=== PATIENT | male | born 1980 | race Caucasian/White ===

== ENCOUNTER 2017-10-08 14:42 | Day surgery (SDC) | payer MEDICAID ==
[~2017-10-08] VITALS: Ht 177.8 cm; Wt 113.6 kg
[2017-10-08] MEDS ORDERED: NO HOME MEDS (15:18)
[2017-10-08 15:19] VITALS: BP 131/85
[2017-10-08] MEDS ORDERED: LIDOcaine Viscous 15ml cup ONE (15:25)
[2017-10-08] MEDS ORDERED: MIDAZolam 5mg/5ml vial ONE (15:25)
[2017-10-08] MEDS ORDERED: fentaNYL/PF 50MCG/1 ML 2ML syringe ONE (15:25)
[2017-10-08 15:49] VITALS: BP 119/69
[2017-10-08 15:59] VITALS: BP 111/68
[2017-10-08 16:09] VITALS: BP 118/78
== END 2017-10-08 16:22 | disposition home or self-care (01) ==
LOC: GI LAB 14:42
PROVIDERS: ATTEND Internal Medicine Gastroenterology
DX: I85.00 Esophageal varices without bleeding (principal); K76.6 Portal hypertension; K31.89 Other diseases of stomach and duodenum; E66.9 Obesity, unspecified; F17.210 Nicotine dependence, cigarettes, uncomplicated; F10.21 Alcohol dependence, in remission; F32.9 Major depressive disorder, single episode, unspecified; F12.90 Cannabis use, unspecified, uncomplicated; Z68.35 Body mass index [BMI] 35.0-35.9, adult
CPT/HCPCS: 43235; 99152; J2250; J3010; J7030; A4620; G0500

== ENCOUNTER 2018-02-16 22:09 | Emergency (ER) | payer MEDICAID ==
[~2018-02-16] VITALS: Ht 177.8 cm; Wt 111.4 kg
[~2018-02-16 22:09] MED LIST: NO HOME MEDS
[2018-02-16] MEDS: olanzapine 10mg tablet PO SCH (23:33)
[2018-02-16] MEDS ORDERED: thiamine 100mg tablet PO ONE (23:55)
[2018-02-16] MEDS ORDERED: folic acid 1mg tablet PO ONE (23:55)
[2018-02-16] MEDS ORDERED: chlordiazePOXIDE 25mg capsule PO ONE (23:55)
[2018-02-17 00:40] LABS: URINE AMPHETAMINE SCREEN NEGATIVE (Neg); URINE BARBITUATE SCREEN NEGATIVE (Neg); URINE BENZODIAZEPINES SCREEN NEGATIVE (Neg); URINE CANNABINOID SCREEN NEGATIVE (Neg); URINE COCAINE SCREEN NEGATIVE (Neg); URINE METHADONE SCREEN NEGATIVE (Neg); URINE OPIATE SCREEN NEGATIVE (Neg); URINE PHENCYCLIDINE SCREEN NEGATIVE (Neg)
[2018-02-17 00:41] LABS: ALANINE AMINOTRANSFERASE 93 U/L (12-78); ALBUMIN 4.2 G/DL (3.4-5.0); ALBUMIN/GLOBULIN RATIO 0.9 (1.1-1.5); ALKALINE PHOSPHATASE 109 IU/L (46-116); ANION GAP 15 (8-16); ASPARTATE AMINO TRANSFERASE 104 U/L (10-37); BILIRUBIN,TOTAL 1.4 MG/DL (0.1-1.0); BLOOD UREA NITROGEN 9 MG/DL (7-18); BUN/CREATININE RATIO 12.5 (5.4-32.0); CALCIUM 9.3 MG/DL (8.5-10.1); CHLORIDE 95 MMOL/L (99-107); CREATININE 0.72 MG/DL (0.60-1.10); GLUCOSE 127 MG/DL (70-104); POTASSIUM 3.3 MMOL/L (3.5-5.1); SODIUM 134 MMOL/L (135-145); TOTAL CARBON DIOXIDE 24.4 MMOL/L (24-32); eGFR > 90 ML/MIN
[2018-02-17] MEDS ORDERED: potassium Cl 20 mEq SR tablet PO ONE (00:50)
[2018-02-17] MEDS ORDERED: magnesium oxide 400mg tablet PO ONE (00:50)
[2018-02-17 00:52] LABS: ETHANOL < 0.010 GM/DL (0.0-0.010)
[2018-02-17 01:29] LABS: CLARITY,URINE CLEAR (Clear); COLOR,URINE YELLOW (Yellow); GLUCOSE, URINE 100 mg/dl (Neg); KETONES,URINE NEGATIVE (Neg); LEUKOCYTE ESTERASE ,URINE NEGATIVE (Neg); NITRITES, URINE NEGATIVE (Neg); OCCULT BLOOD,URINE TRACE-LYSED (Neg); PROTEIN,URINE 100 mg/dl (Neg); UA COLLECTION TYPE VOIDED
[2018-02-17 01:35] LABS: BACTERIA,URINE NONE SEEN /HPF (Neg); RBC,URINE 0-2 /HPF (0-2); SQUAMOUS EPITHELIAL CELL,UR FEW /LPF (FEW); WBC,URINE 0-4 /HPF (0-4)
[2018-02-17 01:36] LABS: MUCUS STRANDS NONE SEEN /LPF (Neg)
[2018-02-17 01:59] LABS: BASOPHILS % (AUTO) 0.4 % (0-1); EOSINOPHILS # (AUTO) 0.1 X10'3 (0-0.9); EOSINOPHILS % (AUTO) 1.6 % (0-6); HEMATOCRIT 50.4 % (42.0-52.0); HEMOGLOBIN 17.8 g/dl (14.0-17.9); LYMPHOCYTES % (AUTO) 11.7 % (21-51); MEAN CORPUSCULAR HEMOGLOBIN 31.9 PG (27.0-31.0); MEAN CORPUSCULAR HGB CONC 35.3 % (33.0-36.5); MEAN CORPUSCULAR VOLUME 90.4 FL (78-98); MEAN PLATELET VOLUME 9.6 FL (7.4-10.4); MONOCYTES # (AUTO) 0.6 X10'3 (0-0.9); MONOCYTES % (AUTO) 6.8 % (2-12); NEUTROPHILS # (AUTO) 7.1 X10'3 (1.8-7.7); NEUTROPHILS % (AUTO) 79.5 % (42-75); PLATELET COUNT 118 X10'3 (140-440); RED BLOOD COUNT 5.58 X10'6 (4.70-6.10); RED CELL DISTRIBUTION WIDTH 13.7 % (11.5-14.5); WHITE BLOOD COUNT 8.9 X10'3 (4.5-11.0)
[2018-02-17 02:36] LABS: PLATELET ESTIMATE DECREASED
[2018-02-17 02:38] LABS: SPHEROCYTES 3+
[2018-02-17 03:07] LABS: ACETAMINOPHEN < 2.0 UG/ML (10-30)
[2018-02-17] MEDS: olanzapine 10mg tablet PO SCH (23:25)
[2018-02-18 18:46] VITALS: BP 126/80
== END 2018-02-18 20:37 ==
LOC: ER 22:10
DX: R45.851 Suicidal ideations (principal)
CPT/HCPCS: 36415; 80053; 80305; 80320; 80329; 81001; 84443; 85025; 99285; J3490

== ENCOUNTER 2018-11-09 14:51 | Emergency (ER) | payer MEDICAID ==
[~2018-11-09] VITALS: Ht 177.8 cm; Wt 113.6 kg
[2018-11-09] MEDS ORDERED: LORazepam 1 MG tablet PO ONE (15:25)
[2018-11-09] MEDS ORDERED: NO HOME MEDS (15:35)
[2018-11-09 15:46] LABS: CLARITY,URINE CLEAR (Clear); COLOR,URINE AMBER (Yellow); GLUCOSE, URINE NEGATIVE (Neg); KETONES,URINE >=80 mg/dl (Neg); LEUKOCYTE ESTERASE ,URINE NEGATIVE (Neg); NITRITES, URINE NEGATIVE (Neg); OCCULT BLOOD,URINE MODERATE (Neg); PROTEIN,URINE >=300 mg/dl (Neg)
[2018-11-09 15:52] LABS: UA COLLECTION TYPE CLN CATCH MIDSTREAM
[2018-11-09 15:54] LABS: BACTERIA,URINE NONE SEEN /HPF (Neg); SQUAMOUS EPITHELIAL CELL,UR FEW /LPF (FEW); WBC,URINE 0-4 /HPF (0-4)
[2018-11-09 15:56] LABS: ALANINE AMINOTRANSFERASE 282 U/L (12-78); ALBUMIN 4.1 G/DL (3.4-5.0); ALBUMIN/GLOBULIN RATIO 0.8 (1.1-1.5); ALKALINE PHOSPHATASE 96 IU/L (46-116); ANION GAP 18 (8-16); ASPARTATE AMINO TRANSFERASE 368 U/L (10-37); BILIRUBIN,TOTAL 1.5 MG/DL (0.1-1.0); BLOOD UREA NITROGEN 9 MG/DL (7-18); BUN/CREATININE RATIO 11.1 (5.4-32.0); CALCIUM 8.7 MG/DL (8.5-10.1); CHLORIDE 95 MMOL/L (99-107); CREATININE 0.81 MG/DL (0.60-1.10); GLUCOSE 86 MG/DL (70-104); POTASSIUM 3.6 MMOL/L (3.5-5.1); SODIUM 137 MMOL/L (135-145); TOTAL CARBON DIOXIDE 23.7 MMOL/L (24-32); TOTAL PROTEIN 9.1 G/DL (6.4-8.2); eGFR > 90 ML/MIN
[2018-11-09 16:00] LABS: BASOPHILS # (AUTO) 0.1 X10'3 (0-0.2); BASOPHILS % (AUTO) 0.9 % (0-1); EOSINOPHILS % (AUTO) 0.3 % (0-6); HEMATOCRIT 52.7 % (42.0-52.0); LYMPHOCYTES # (AUTO) 2.2 X10'3 (1.1-4.8); LYMPHOCYTES % (AUTO) 39.3 % (21-51); MEAN CORPUSCULAR HEMOGLOBIN 30.2 PG (27.0-31.0); MEAN CORPUSCULAR HGB CONC 35.2 g/dL (33.0-36.5); MEAN CORPUSCULAR VOLUME 85.7 FL (78-98); MEAN PLATELET VOLUME 8.2 FL (7.4-10.4); MONOCYTES # (AUTO) 0.4 X10'3 (0-0.9); MONOCYTES % (AUTO) 6.5 % (2-12); NEUTROPHILS # (AUTO) 2.9 X10'3 (1.8-7.7); PLATELET COUNT 166 X10'3 (140-440); RED BLOOD COUNT 6.15 X10'6 (4.70-6.10); RED CELL DISTRIBUTION WIDTH 13.6 % (11.5-14.5); WHITE BLOOD COUNT 5.5 X10'3 (4.5-11.0)
[2018-11-09 16:01] LABS: URINE AMPHETAMINE SCREEN NEGATIVE (Neg); URINE BARBITUATE SCREEN NEGATIVE (Neg); URINE BENZODIAZEPINES SCREEN NEGATIVE (Neg); URINE CANNABINOID SCREEN NEGATIVE (Neg); URINE COCAINE SCREEN NEGATIVE (Neg); URINE METHADONE SCREEN NEGATIVE (Neg); URINE OPIATE SCREEN NEGATIVE (Neg); URINE PHENCYCLIDINE SCREEN NEGATIVE (Neg)
[2018-11-09 16:05] LABS: HEMOGLOBIN 18.5 g/dl (14.0-17.9)
[2018-11-09] MEDS ORDERED: normal saline 1000ml 1,000 ML IV ONE (16:10)
--- NOTE | 2018-11-09 19:25 | NUR ---
Patient transferred from the main. Patient has elevated ETOH level. Patient c/o hearing command hallucinations telling him to drink himself to . Patient states he is having audio and visual hallucinations. Patient would not describe the visual hallucinations. Patient states he is very depressed and doesn't know if he is suicidal. Continue to monitor.
--- NOTE | 2018-11-09 20:55 | NUR ---
Patient continues to sleep on right side. Continue to monitor.
--- NOTE | 2018-11-09 22:06 | NUR ---
Patient sleping on right side. No distress observed. Continue to monitor.
--- NOTE | 2018-11-09 22:17 | NUR ---
breaking primary RN, pt is laying on his right side, eyes closed, snoring, no s/s of agitation observed
--- NOTE | 2018-11-10 00:15 | NUR ---
Patient sleeping on left side. No distress observed. Continue to monitor.
--- NOTE | 2018-11-10 02:54 | NUR ---
Patient just rolled over on his back, still sleeping. No distress observed. Continue to monitor.
--- NOTE | 2018-11-10 05:08 | NUR ---
Patient sleeping on right side. Patient awoken a few minutes ago for vital signs. No distress observed. Continue to monitor.
--- NOTE | 2018-11-10 07:30 | NUR ---
Pt remains calm and cooperative and denies needs at present time.
--- NOTE | 2018-11-10 09:30 | NUR ---
Called [facility] office and spoke with Ester, report that management intern currently at [facility]. If management intern unable to come here this AM [facility] management intern Dillon is to be arriving around 1230 this afternoon.
--- NOTE | 2018-11-10 14:12 | NUR ---
NO CHANGE. RESTING IN POC WITHOUT NEED AT THIS TIME. ATE ALL OF LUNCH.
--- NOTE | 2018-11-10 14:30 | NUR ---
PT REMAINS CALM & COOPERATIVE. PT NOTED TO BE GETTING RESTLESS AT TIMES (FIDGETING WITH BLANKETS, RESTLESS IN BED GETTING UP AND DOWN) BUT THEN WILL LAY DOWN AND REST. DISCUSSED PT ACTIVITY WITH DR. RAE AND MAY GIVE PT ATIVAN 2MG PO X 1 PRN ANXIETY/AGITATION.
--- NOTE | 2018-11-10 18:42 | NUR ---
Patient called brother who will transport patient at [place].
--- NOTE | 2018-11-10 20:10 | NUR ---
Denies suicidal thoughts, auditory and visual hallucinations. Awaiting brother with the assistance of [facility] to transport pt back to home with family in [place]. Denies pain. Laying comfortably in bed.
[2018-11-10 21:07] VITALS: BP 161/101
--- NOTE | 2018-11-10 21:15 | NUR ---
Patients brother here to hand picker patient. DC instructions given. Patient signed DC forms. Belongings sent with patient.
== END 2018-11-10 21:15 | disposition home or self-care (01) ==
LOC: ER 14:53
DX: R45.851 Suicidal ideations (principal); F10.239 Alcohol dependence with withdrawal, unspecified; Y90.0 Blood alcohol level of less than 20 mg/100 ml
CPT/HCPCS: 36415; 80053; 80305; 80320; 81001; 85025; 93005; 99284; J7030

== ENCOUNTER 2018-11-13 02:36 | Emergency (ER) | payer MEDICAID ==
[~2018-11-13] VITALS: Ht 177.8 cm; Wt 110.0 kg
[2018-11-13 03:29] LABS: BASOPHILS % (AUTO) 0.8 % (0-1); EOSINOPHILS % (AUTO) 0.8 % (0-6); HEMOGLOBIN 16.2 g/dl (14.0-17.9); LYMPHOCYTES % (AUTO) 22.3 % (21-51); MEAN CORPUSCULAR HGB CONC 35.9 g/dL (33.0-36.5); MEAN CORPUSCULAR VOLUME 86.5 FL (78-98); MEAN PLATELET VOLUME 8.7 FL (7.4-10.4); MONOCYTES # (AUTO) 0.5 X10'3 (0-0.9); MONOCYTES % (AUTO) 10.1 % (2-12); PLATELET COUNT 88 X10'3 (140-440); RED BLOOD COUNT 5.21 X10'6 (4.70-6.10); RED CELL DISTRIBUTION WIDTH 13.5 % (11.5-14.5); WHITE BLOOD COUNT 4.6 X10'3 (4.5-11.0)
[2018-11-13 03:34] LABS: CLARITY,URINE CLEAR (Clear); COLOR,URINE YELLOW (Yellow); GLUCOSE, URINE NEGATIVE (Neg); KETONES,URINE NEGATIVE (Neg); LEUKOCYTE ESTERASE ,URINE NEGATIVE (Neg); NITRITES, URINE NEGATIVE (Neg); OCCULT BLOOD,URINE NEGATIVE (Neg); PH,URINE 7.5 (4.8-8.0); PROTEIN,URINE NEGATIVE (Neg)
[2018-11-13 03:39] LABS: ALANINE AMINOTRANSFERASE 149 U/L (12-78); ALBUMIN 3.7 G/DL (3.4-5.0); ALBUMIN/GLOBULIN RATIO 0.9 (1.1-1.5); ALKALINE PHOSPHATASE 104 IU/L (46-116); ANION GAP 11 (8-16); ASPARTATE AMINO TRANSFERASE 140 U/L (10-37); BILIRUBIN,TOTAL 1.4 MG/DL (0.1-1.0); BLOOD UREA NITROGEN 7 MG/DL (7-18); BUN/CREATININE RATIO 10.6 (5.4-32.0); CALCIUM 9.2 MG/DL (8.5-10.1); CHLORIDE 96 MMOL/L (99-107); CREATININE 0.66 MG/DL (0.60-1.10); GLUCOSE 156 MG/DL (70-104); POTASSIUM 3.1 MMOL/L (3.5-5.1); SODIUM 134 MMOL/L (135-145); TOTAL CARBON DIOXIDE 26.8 MMOL/L (24-32); eGFR > 90 ML/MIN
[2018-11-13 03:48] LABS: ETHANOL < 0.010 GM/DL (0.0-0.010)
[2018-11-13 03:52] LABS: URINE AMPHETAMINE SCREEN NEGATIVE (Neg); URINE BARBITUATE SCREEN NEGATIVE (Neg); URINE BENZODIAZEPINES SCREEN NEGATIVE (Neg); URINE CANNABINOID SCREEN NEGATIVE (Neg); URINE COCAINE SCREEN NEGATIVE (Neg); URINE METHADONE SCREEN NEGATIVE (Neg); URINE OPIATE SCREEN NEGATIVE (Neg); URINE PHENCYCLIDINE SCREEN NEGATIVE (Neg)
[2018-11-13 03:53] LABS: UA COLLECTION TYPE CLN CATCH MIDSTREAM
[2018-11-13] MEDS ORDERED: potassium Cl 20 mEq SR tablet PO STA (03:59)
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
--- NOTE | 2018-11-13 07:06 | NUR ---
PACKET FAXED TO [facility]
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
[2018-11-13] MEDS ORDERED: GABA-532 PO (09:12)
[2018-11-13] MEDS ORDERED: TRAZ-219 PO (09:14)
[2018-11-13] MEDS ORDERED: QUET-1 PO (09:14)
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
--- NOTE | 2018-11-13 09:31 | NUR ---
PT TO RESTROOM PT WROTE ON THE WALL IN FECES "FUCK THIS THEY CAN GO TO HELL"
--- NOTE | 2018-11-13 09:56 | NUR ---
SECURITY CALLED TO ESCORT PT TO THE BATHROOM FOR CLEAN-UP OF STOOL ON THE WALL.
[2018-11-13] MEDS ORDERED: LORazepam 2 mg/ml vial IM ONE (10:50)
[2018-11-13] MEDS ORDERED: haloperidol lactate 5mg/ml inj IM ONE (10:50)
[2018-11-13] MEDS ORDERED: diphenhydrAMINE 50 mg/ml inj IM ONE (10:50)
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
--- NOTE | 2018-11-13 11:00 | NUR ---
PT WAS SITTING ON TOILET REFUSING TO LEAVE THE BATHROOM. I WAS STANDING IN FRONT OF THE DOOR ATTEMPTING TO TALK HIM OUT. HE TOLD ME HE WAS GOING TO RUN THROUGH ME AND INTO THE COMPUTER BEHIND ME AND BREAK BOTH ME AND THE COMPUTER.
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
--- NOTE | 2018-11-13 11:59 | NUR ---
LEFT LEG RESTRAINT REMOVED.
--- NOTE | 2018-11-13 12:15 | NUR ---
R LEG RESTRAINT REMOVED
--- NOTE | 2018-11-13 14:00 | NUR ---
PT APPPEARS TO BE SLEEPING. SITTER IN ROOM
--- NOTE | 2018-11-13 17:53 | NUR ---
PT APEARS TO BE SLEEPING LAYING ON HIS LEFT SIDE, RESPIRATIONS EVEN AND UNALBORED. NO DISTRESS NOTED AT THIS TIME. SITTER IN ROOM.
[2018-11-13] MEDS ORDERED: quetiapine 100mg tablet PO SCH (21:00)
[2018-11-13] MEDS ORDERED: gabapentin 300mg capsule PO SCH (21:00)
[2018-11-13] MEDS ORDERED: traZODone 50mg tablet PO SCH (21:00)
--- NOTE | 2018-11-13 21:46 | NUR ---
pt has been sleeping all shift. pt awoke to take po meds, did so with no problems. will continue to monitor for safety.
--- NOTE | 2018-11-13 23:01 | NUR ---
pt is sleeping on left side. no s/s of distress noted, will continue to monitor.
--- NOTE | 2018-11-14 00:14 | NUR ---
PT APPEARS TO BE SLEEPING, RR WNL.
--- NOTE | 2018-11-14 03:10 | NUR ---
PT CONTINUES TO SLEEP. RR UNLABORED, NO S/S OF DISTRESS NOTED. PT HAS SITTER IN ROOM.
[2018-11-14 03:17] VITALS: BP 132/82
--- NOTE | 2018-11-14 05:35 | NUR ---
PT CONTINUES TO SLEEP. RR UNLABORED, NO S/S OF DISTRESS NOTED. PT HAS SITTER IN ROOM.
--- NOTE | 2018-11-14 13:45 | NUR ---
PT'S MOTHER CALLS TO SEE HOW HE IS DOING. PT SITTING ON END OF BED AND STATES HE IS FEELING MUCH BETTER. INFORM MOTHER OF SAME. MOM STATES TO TELL HIM THAT SHE AND THE FAMILY ARE WANTING HIM TO GET BETTER.
--- NOTE | 2018-11-14 15:33 | NUR ---
AUSTIN FROM [facility] CALLED FOR REPORT ON PT.
--- NOTE | 2018-11-14 17:32 | NUR ---
PT TRANSFERRED.. CALLED NABIL AT [facility] TO LET HER KNOW THEY LEFT.
== END 2018-11-14 17:36 ==
LOC: ER 02:36
DX: R44.1 Visual hallucinations (principal); R44.0 Auditory hallucinations; E87.6 Hypokalemia; F91.8 Other conduct disorders
CPT/HCPCS: 36415; 80053; 80305; 80320; 81003; 84443; 85025; 96372; 99285; J1200; J1630; J2060

== ENCOUNTER 2020-10-18 09:05 | Day surgery (SDC) | payer MEDICAID ==
[~2020-10-18] VITALS: Ht 182.9 cm; Wt 115.9 kg
[2020-10-18 09:00] VITALS: BP 133/88
[~2020-10-18 09:05] MED LIST changes: +GABA-532 PO; -NO HOME MEDS; +QUET-1 PO; +TRAZ-256 PO
[2020-10-18] MEDS ORDERED: MULT-1085 PO (09:39)
[2020-10-18] MEDS ORDERED: LACT10SO3 PO (09:39)
[2020-10-18] MEDS ORDERED: FOLI0.4T6 PO (09:40)
[2020-10-18] MEDS ORDERED: SPIR50TA PO (09:44)
[2020-10-18] MEDS ORDERED: prednisolone PO (09:44)
[2020-10-18] MEDS ORDERED: normal saline 1000ml 1,000 ML IV PRN (09:55)
[2020-10-18] MEDS ORDERED: albumin 25% 100mL bottle x 1 IV PRN (09:55)
[2020-10-18 10:45] VITALS: BP 120/73
[2020-10-18 11:00] VITALS: BP 123/71
[2020-10-18 11:15] VITALS: BP 122/72
[2020-10-18 11:19] LABS: GLUCOSE,BODY FLUID 114 MG/DL; LDH,BODY FLUID 41 U/L
[2020-10-18 11:30] VITALS: BP 118/74
[2020-10-18 11:36] LABS: TOTAL PROTEIN,BODY FLUID < 2.0 G/DL
[2020-10-18 11:45] VITALS: BP 116/70
[2020-10-18 11:47] LABS: BF RBC COUNT 135 /CU MM; BF WBC COUNT 170 /CU MM (0-1000); BFAPPEAR HAZY; BFCOLOR YELLOW; BFVOLUME 60 ML
[2020-10-18 11:48] LABS: BF MESOTHELIAL CELLS FEW; LYMPHOCYTES,BODY FLUID 85 %; MONOCYTES,BODY FLUID 15 %
== END 2020-10-18 12:05 | disposition home or self-care (01) ==
LOC: SSTAY O 09:05
PROVIDERS: ATTEND Preventive Medicine Aerospace Medicine
DX: K70.31 Alcoholic cirrhosis of liver with ascites (principal); Z87.891 Personal history of nicotine dependence; Z79.899 Other long term (current) drug therapy
CPT/HCPCS: 49083; 82945; 83615; 84157; 87070; 89051; P9047